=== PATIENT | female | born 1955 | race American Indian/Alaskan Native ===

== ENCOUNTER 2022-03-23 03:02 | Inpatient (IN) | payer MEDICARE ==
[2022-03-23 05:03] LABS: Basophils # (Auto) 0.1 K/mm3 (0.0-0.1); Basophils % (Auto) 0.7 % (0.0-1.8); Eosinophils % (Auto) 0.1 % (0.0-4.3); Hematocrit 39.6 % (30.3-42.9); Hemoglobin 13.3 gm/dl (10.1-14.3); Lymphocytes # (Auto) 1.9 K/mm3 (1.2-5.4); Lymphocytes % (Auto) 18.6 % (13.4-35.0); Mean Corpuscular HGB Conc 34 % (30-34); Mean Corpuscular Volume 89 fl (79-97); Monocytes # (Auto) 0.6 K/mm3 (0.0-0.8); Monocytes % (Auto) 6.3 % (0.0-7.3); Platelet Count 247 K/mm3 (140-440); Red Blood Count 4.48 M/mm3 (3.65-5.03); Red Cell Distribution Width 14.7 % (13.2-15.2)
[2022-03-23 05:14] LABS: Alanine Aminotransferase 27 units/L (7-56); Albumin 3.9 g/dL (3.9-5); Blood Urea Nitrogen 14 mg/dL (7-17); Calcium 9.9 mg/dL (8.4-10.2); Hemolysis Index 16
[2022-03-23 05:15] LABS: BUN/Creatinine Ratio 35
[2022-03-23] MEDS ORDERED: ONDANSETRON 4 MG/2 ML INJ IV ONE (10:26)
[2022-03-23] MEDS ORDERED: SODIUM CHLORIDE 0.9% 500 ML 500 ML IV ONE (10:26)
[2022-03-23] MEDS ORDERED: fentaNYL 100 MCG/2 ML INJ IV ONE (10:26)
[2022-03-23] MEDS ORDERED: dilTIAZem 25 MG/5 ML INJ IV ONE (10:35)
--- NOTE | 2022-03-23 10:35 | Emergency Department Report ---
HPI - General Chief Complaint: Nausea/Vomiting/Diarrhea Time Seen by Provider: 03/23/22 09:53 - HPI HPI: Room 22 The patient is a 66-year-old female present with a chief complaint of back pain nausea vomiting. Patient states her symptoms began yesterday when she awakened. Patient states she felt "sick." Patient states her symptoms include shaking chills and back pain. Patient complains of pain across her lower back. Patient states she developed nausea vomiting and diarrhea. Patient denies history of fever, dysuria or hematuria. Patient does have a history of atrial fibrillation ED Past Medical Hx - Past Medical History Previous Medical History?: Yes Hx Hypertension: Yes Hx Congestive Heart Failure: Yes Additional medical history: Atrial fibrillation - Surgical History Past Surgical History?: No - Family History Family history: no significant - Social History Smoking Status: Never Smoker Substance Use Type: None (Denies illicit drug use), Alcohol (Occasional) ED Review of Systems ROS: Stated complaint: SHAKING/NAUSEA Other details as noted in HPI Constitutional: chills. denies: fever Eyes: denies: eye pain ENT: denies: throat pain Respiratory: no symptoms reported Cardiovascular: denies: chest pain Endocrine: no symptoms reported Gastrointestinal: nausea, vomiting, diarrhea. denies: abdominal pain Genitourinary: denies: dysuria, hematuria Musculoskeletal: back pain Neurological: headache Physical Exam - Physical Exam Vital Signs: Vital Signs 03/23/22 03/23/22 03/23/22 03:03 05:56 09:52 Temperature 99.2 F 98.4 F Pulse Rate 107 H 121 H 98 H Respiratory 20 20 18 Rate Blood Pressure 138/86 137/86 Blood Pressure 164/93 [Left] O2 Sat by Pulse 99 99 99 Oximetry 03/23/22 09:56 Temperature 98.7 F Pulse Rate Respiratory Rate Blood Pressure Blood Pressure [Left] O2 Sat by Pulse Oximetry Physical Exam: GENERAL: The patient is well-developed well-nourished female lying on stretcher not appearing to be in acute distress but generally uncomfortable. [] HEENT: Normocephalic. Atraumatic. Extraocular motions are intact. Patient has moist mucous membranes. NECK: Supple. Trachea midline CHEST/LUNGS: Clear to auscultation. There is no respiratory distress noted. HEART/CARDIOVASCULAR: Regular at times and then irregularly irregular. There is occasional tachycardia. There is no gallop rub or murmur. ABDOMEN: Abdomen is soft, nontender. Patient has normal bowel sounds. There is no abdominal distention. SKIN: There is no rash. There is no edema. There is no diaphoresis. NEURO: The patient is awake, alert, and oriented. The patient is cooperative. The patient has no focal neurologic deficits. The patient has normal speech. GCS 15 MUSCULOSKELETAL: There is pain across the low lower back bilaterally. There is no evidence of acute injury. ED Course Vital Signs 03/23/22 03/23/22 03/23/22 03:03 05:56 09:52 Temperature 99.2 F 98.4 F Pulse Rate 107 H 121 H 98 H Respiratory 20 20 18 Rate Blood Pressure 138/86 137/86 Blood Pressure 164/93 [Left] O2 Sat by Pulse 99 99 99 Oximetry 03/23/22 09:56 Temperature 98.7 F Pulse Rate Respiratory Rate Blood Pressure Blood Pressure [Left] O2 Sat by Pulse Oximetry ED Medical Decision Making - Lab Data Result diagrams: 03/23/22 04:30 03/23/22 04:30 Laboratory Tests 03/23/22 03/23/22 03/23/22 04:30 04:30 04:30 WBC 10.3 RBC 4.48 Hgb 13.3 Hct 39.6 MCV 89 MCH 30 MCHC 34 RDW 14.7 Plt Count 247 Lymph % (Auto) 18.6 [place] % (Auto) 6.3 Eos % (Auto) 0.1 Baso % (Auto) 0.7 Lymph # (Auto) 1.9 [place] # (Auto) 0.6 Eos # (Auto) 0.0 Baso # (Auto) 0.1 Seg Neutrophils % 74.3 H Seg Neutrophils # 7.7 Sodium 139 Potassium 4.2 Chloride 101.3 Carbon Dioxide 23 Anion Gap 19 BUN 14 Creatinine 0.4 L Estimated GFR > 60 BUN/Creatinine Ratio 35 Glucose 102 H Calcium 9.9 Magnesium 1.60 L Total Bilirubin 0.60 AST 37 ALT 27 Alkaline Phosphatase 125 Total Protein 9.9 H Albumin 3.9 Albumin/Globulin Ratio 0.7 Lipase 44 TSH Free T4 Urine Color Urine Turbidity Urine pH Ur Specific [place] Urine Protein Urine Glucose (UA) Urine Ketones Urine Blood Urine Nitrite Urine Bilirubin Urine Urobilinogen Ur Leukocyte Esterase Urine WBC (Auto) Urine RBC (Auto) U Epithel Cells (Auto) Urine Bacteria (Auto) Urine Mucus 03/23/22 03/23/22 04:30 12:59 WBC RBC Hgb Hct MCV MCH MCHC RDW Plt Count Lymph % (Auto) [place] % (Auto) Eos % (Auto) Baso % (Auto) Lymph # (Auto) [place] # (Auto) Eos # (Auto) Baso # (Auto) Seg Neutrophils % Seg Neutrophils # Sodium Potassium Chloride Carbon Dioxide Anion Gap BUN Creatinine Estimated GFR BUN/Creatinine Ratio Glucose Calcium Magnesium Total Bilirubin AST ALT Alkaline Phosphatase Total Protein Albumin Albumin/Globulin Ratio Lipase TSH 3.630 Free T4 0.98 Urine Color Yellow Urine Turbidity Clear Urine pH 6.0 Ur Specific [place] 1.013 Urine Protein <15 mg/dl Urine Glucose (UA) Neg Urine Ketones Tr Urine Blood Sm Urine Nitrite Neg Urine Bilirubin Neg Urine Urobilinogen < 2 Ur Leukocyte Esterase Mod Urine WBC (Auto) 1.0 Urine RBC (Auto) 3.0 U Epithel Cells (Auto) 2.0 Urine Bacteria (Auto) 1+ Urine Mucus Few - EKG Data -: EKG Interpreted by Wi Rate: tachycardia - EKG Data When compared to previous EKG there are: previous EKG unavailable Interpretation: other (EKG appears to go from A. fib RVR to normal sinus back to A. fib with RVR) - Radiology Data Radiology results: report reviewed (CT abdomen pelvis), image reviewed (CT abdomen pelvis) [place] [address] Cat Scan Report Signed Patient: LUPE MIKE MR#: [id number] : 1955 Acct:[id number] Age/Sex: 66 / F ADM Date: 03/23/22 Loc: ED Attending Dr: Ordering Physician: DANA HELMS MD Date of Service: 03/23/22 Procedure(s): CT abdomen pelvis w con Accession Number(s): [id number] cc: DANA HELMS MD CT ABDOMEN AND PELVIS WITH CONTRAST INDICATION / CLINICAL INFORMATION: Low back pain, nausea with vomiting, diarrhea. TECHNIQUE: Axial CT images were obtained through the abdomen and pelvis after IV contrast. All CT scans at this location are performed using CT dose reduction for ALARA by means of automated exposure control. COMPARISON: None available. FINDINGS: LOWER CHEST: No significant abnormality. LIVER: There is mild steatosis without other significant abnormalities. GALLBLADDER: Cholelithiasis is noted without evidence of acute cholecystitis. BILE DUCTS: No significant abnormality. PANCREAS: No significant abnormality. SPLEEN: No significant abnormality. ADRENALS: No significant abnormality. RIGHT KIDNEY/URETER: No significant abnormality. LEFT KIDNEY/URETER: No significant abnormality. STOMACH/SMALL BOWEL: No significant abnormality. COLON: No significant abnormality. APPENDIX: No significant abnormality. PERITONEUM: No free fluid. No free air. No fluid collection. LYMPH NODES: No significant adenopathy. VASCULATURE: There is moderate atherosclerosis without other significant abnormalities. URINARY BLADDER: No significant abnormality. REPRODUCTIVE ORGANS: A calcified uterine fundal fibroid is seen without other significant abnormalities. ADDITIONAL FINDINGS: None. BONES: No acute findings. The bones are demineralized with moderate degenerative changes of the spine and mild degenerative changes of the pelvis. IMPRESSION: 1. No acute findings to explain the patient's complaint. 2. Additional findings as above. Signer Name: Yoel Warren MD Signed: 03/23/2022 2:40 PM Workstation Name: [id number] Transcribed By: TIFFANIE Dictated By: Yoel Warren MD Electronically Authenticated By: Yole Warren MD Signed Date/Time: 03/23/22 1440 DD/ 1436 TD/TT: - Differential Diagnosis Pyelonephritis, A. fib with RVR, hypothyroidism Critical care attestation.: If time is entered above; I have spent that time in minutes in the direct care of this critically ill patient, excluding procedure time. ED Disposition Clinical Impression: Atrial fibrillation with RVR, Nausea vomiting and diarrhea Disposition: ADMITTED INPATIENT Is pt being admited?: Yes Does the pt Need Aspirin: No Condition: Fair Referrals: BASHIR MAN MD [Primary Care Provider] - 3-5 Days Time of Disposition: 14:51 (Care transferred to hospitalist (Dr. Pimentel))
[2022-03-23] MEDS ORDERED: MAGNESIUM SULFATE 2 GM/50 ML BAG IV ONE (11:33)
[2022-03-23 11:42] LABS: Free T4 (Free Thyroxine) 0.98 ng/dL (0.76-1.46)
--- NOTE | 2022-03-23 11:57 | Electrocardiograph Report ---
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
[2022-03-23 13:09] LABS: Bilirubin,Urine NEG (Negative); Blood,Urine SM (Negative); Color,Urine Yellow (Yellow); Protein,Urine <15 mg/dL mg/dL (Negative); Urobilinogen,Urine < 2 mg/dL (<2.0)
[2022-03-23 13:13] LABS: Bacteria,Urine 1+ /HPF (Negative); Mucus,Urine FEW /HPF
--- NOTE | 2022-03-23 14:44 | Cat Scan Report ---
CT ABDOMEN AND PELVIS WITH CONTRAST INDICATION / CLINICAL INFORMATION: Low back pain, nausea with vomiting, diarrhea. TECHNIQUE: Axial CT images were obtained through the abdomen and pelvis after IV contrast. All CT scans at this location are performed using CT dose reduction for ALARA by means of automated exposure control. COMPARISON: None available. FINDINGS: LOWER CHEST: No significant abnormality. LIVER: There is mild steatosis without other significant abnormalities. GALLBLADDER: Cholelithiasis is noted without evidence of acute cholecystitis. BILE DUCTS: No significant abnormality. PANCREAS: No significant abnormality. SPLEEN: No significant abnormality. ADRENALS: No significant abnormality. RIGHT KIDNEY/URETER: No significant abnormality. LEFT KIDNEY/URETER: No significant abnormality. STOMACH/SMALL BOWEL: No significant abnormality. COLON: No significant abnormality. APPENDIX: No significant abnormality. PERITONEUM: No free fluid. No free air. No fluid collection. LYMPH NODES: No significant adenopathy. VASCULATURE: There is moderate atherosclerosis without other significant abnormalities. URINARY BLADDER: No significant abnormality. REPRODUCTIVE ORGANS: A calcified uterine fundal fibroid is seen without other significant abnormaliti es. ADDITIONAL FINDINGS: None. BONES: No acute findings. The bones are demineralized with moderate degenerative changes of the spine and mild degenerative changes of the pelvis. IMPRESSION: 1. No acute findings to explain the patient's complaint. 2. Additional findings as above. Signer Name: Yoel Warren MD Signed: 03/23/2022 2:40 PM Workstation Name: [email or web address]
[2022-03-23] MEDS ORDERED: ONDANSETRON 4 MG/2 ML INJ IV PRN ×2 (14:52→21:35)
[2022-03-23] MEDS ORDERED: MORPHINE 2 MG/1 ML INJ IV PRN (14:52)
[2022-03-23] MEDS ORDERED: ACETAMINOPHEN 325 MG TAB PO PRN ×2 (14:52→21:35)
--- NOTE | 2022-03-23 21:10 | History and Physical Report ---
History of Present Illness Date of examination: 03/23/22 Date of admission: 03/23/22 14:52 Chief complaint: Palpitations off-and-on History of present illness: 66-year-old female comes in for multiple complaints including low back pain and vomiting. Patient also has intermittent palpitations. In the emergency room patient had A. fib with rapid RVR paroxysmally hence patient being admitted. No chest pain. No shortness of breath. No diaphoresis. During examination patient was comfortable. Was in sinus rhythm. EKGs reviewed which showed paroxysmal atrial fibrillation. Patient was started on diltiazem 120 mg every 24 hours. Cardiology consult was requested. Patient has history of hypertension and congestive heart failure. - Past Medical History Previous Medical History?: Yes Hx Hypertension: Yes Hx Congestive Heart Failure: Yes Additional medical history: Atrial fibrillation - Surgical History Past Surgical History?: No - Family History Family history: no significant - Social History Smoking Status: Never Smoker Substance Use Type: None (Denies illicit drug use), Alcohol (Occasional) Review of Systems ROS: Stated complaint: SHAKING/NAUSEA Other details as noted in HPI Constitutional: chills. denies: fever Eyes: denies: eye pain ENT: denies: throat pain Respiratory: no symptoms reported Cardiovascular: denies: chest pain Endocrine: no symptoms reported Gastrointestinal: nausea, vomiting, diarrhea. denies: abdominal pain Genitourinary: denies: dysuria, hematuria Musculoskeletal: back and vomiting. Neurological: headache Medications and Allergies Allergies Allergy/AdvReac Type Severity Reaction Status Date / Time No Known Allergies Allergy Unverified 03/23/22 04:13 Active Meds: Active Medications Acetaminophen (Acetaminophen 325 Mg Tab) 650 mg PO Q4H PRN PRN Reason: Pain MILD(1-3)/Fever >100.5/BARAJAS Morphine Sulfate (Morphine 2 Mg/1 Ml Inj) 2 mg IV Q4H PRN PRN Reason: Pain, Moderate (4-6) Last Admin: 03/23/22 17:22 Dose: 2 mg Ondansetron HCl (Ondansetron 4 Mg/2 Ml Inj) 4 mg IV Q8H PRN PRN Reason: Nausea And Vomiting Last Admin: 03/23/22 18:43 Dose: 4 mg Sodium Chloride (Sodium Chloride 0.9% 10 Ml Flush Syringe) 10 ml IV BID ARELY Sodium Chloride (Sodium Chloride 0.9% 10 Ml Flush Syringe) 10 ml IV PRN PRN PRN Reason: LINE FLUSH Exam - Constitutional Vitals: Temp Pulse Resp BP Pulse Ox 98.7 F 105 H 18 151/105 99 03/23/22 09:56 03/23/22 18:42 03/23/22 18:42 03/23/22 18:42 03/23/22 18:42 General appearance: Present: no acute distress, well-nourished - EENT Eyes: Present: PERRL ENT: hearing intact, clear oral mucosa - Neck Neck: Present: supple, normal ROM - Respiratory Respiratory effort: normal Respiratory: bilateral: CTA - Cardiovascular Heart rate: 78 Rhythm: regular Heart Sounds: Present: S1 & S2. Absent: rub, click - Extremities Extremities: pulses symmetrical, No edema Peripheral Pulses: within normal limits - Abdominal General gastrointestinal: Present: soft, non-tender, non-distended, normal bowel sounds Female genitourinary: Present: normal - Integumentary Integumentary: Present: clear, warm, dry - Musculoskeletal Musculoskeletal: gait normal, strength equal bilaterally - Psychiatric Psychiatric: appropriate mood/affect, intact judgment & insight - Neurologic Neurologic: CNII-XII intact, moves all extremities HEART Score - HEART Score History: Moderately suspicious Age: > 65 Risk factors: 1-2 risk factors Troponin: < normal limit - Critical Actions Critical Actions: 4-6 pts:12-16.6% risk of adverse cardiac event. Should be admitted Results - Labs CBC & Chem 7: 03/24/22 05:43 03/24/22 05:43 Labs: Laboratory Last Values WBC 10.3 K/mm3 (4.5-11.0) 03/23/22 04:30 RBC 4.48 M/mm3 (3.65-5.03) 03/23/22 04:30 Hgb 13.3 gm/dl (10.1-14.3) 03/23/22 04:30 Hct 39.6 % (30.3-42.9) 03/23/22 04:30 MCV 89 fl (79-97) 03/23/22 04:30 MCH 30 pg (28-32) 03/23/22 04:30 MCHC 34 % (30-34) 03/23/22 04:30 RDW 14.7 % (13.2-15.2) 03/23/22 04:30 Plt Count 247 K/mm3 (140-440) 03/23/22 04:30 Lymph % (Auto) 18.6 % (13.4-35.0) 03/23/22 04:30 [place] % (Auto) 6.3 % (0.0-7.3) 03/23/22 04:30 Eos % (Auto) 0.1 % (0.0-4.3) 03/23/22 04:30 Baso % (Auto) 0.7 % (0.0-1.8) 03/23/22 04:30 Lymph # (Auto) 1.9 K/mm3 (1.2-5.4) 03/23/22 04:30 [place] # (Auto) 0.6 K/mm3 (0.0-0.8) 03/23/22 04:30 Eos # (Auto) 0.0 K/mm3 (0.0-0.4) 03/23/22 04:30 Baso # (Auto) 0.1 K/mm3 (0.0-0.1) 03/23/22 04:30 Seg Neutrophils % 74.3 % (40.0-70.0) H 03/23/22 04:30 Seg Neutrophils # 7.7 K/mm3 (1.8-7.7) 03/23/22 04:30 Sodium 139 mmol/L (137-145) 03/23/22 04:30 Potassium 4.2 mmol/L (3.6-5.0) 03/23/22 04:30 Chloride 101.3 mmol/L (98-107) 03/23/22 04:30 Carbon Dioxide 23 mmol/L (22-30) 03/23/22 04:30 Anion Gap 19 mmol/L 03/23/22 04:30 BUN 14 mg/dL (7-17) 03/23/22 04:30 Creatinine 0.4 mg/dL (0.6-1.2) L 03/23/22 04:30 Estimated GFR > 60 ml/min 03/23/22 04:30 BUN/Creatinine Ratio 35 % 03/23/22 04:30 Glucose 102 mg/dL (65-100) H 03/23/22 04:30 Calcium 9.9 mg/dL (8.4-10.2) 03/23/22 04:30 Magnesium 1.60 mg/dL (1.7-2.3) L 03/23/22 04:30 Total Bilirubin 0.60 mg/dL (0.1-1.2) 03/23/22 04:30 AST 37 units/L (5-40) 03/23/22 04:30 ALT 27 units/L (7-56) 03/23/22 04:30 Alkaline Phosphatase 125 units/L (35-129) 03/23/22 04:30 Total Protein 9.9 g/dL (6.3-8.2) H 03/23/22 04:30 Albumin 3.9 g/dL (3.9-5) 03/23/22 04:30 Albumin/Globulin Ratio 0.7 % 03/23/22 04:30 Lipase 44 units/L (13-60) 03/23/22 04:30 TSH 3.630 mlU/mL (0.270-4.200) 03/23/22 04:30 Free T4 0.98 ng/dL (0.76-1.46) 03/23/22 04:30 Urine Color Yellow (Yellow) 03/23/22 12:59 Urine Turbidity Clear (Clear) 03/23/22 12:59 Urine pH 6.0 (5.0-7.0) 03/23/22 12:59 Ur Specific [place] 1.013 (1.003-1.030) 03/23/22 12:59 Urine Protein <15 mg/dl mg/dL (Negative) 03/23/22 12:59 Urine Glucose (UA) Neg mg/dL (Negative) 03/23/22 12:59 Urine Ketones Tr mg/dL (Negative) 03/23/22 12:59 Urine Blood Sm (Negative) 03/23/22 12:59 Urine Nitrite Neg (Negative) 03/23/22 12:59 Urine Bilirubin Neg (Negative) 03/23/22 12:59 Urine Urobilinogen < 2 mg/dL (<2.0) 03/23/22 12:59 Ur Leukocyte Esterase Mod (Negative) 03/23/22 12:59 Urine WBC (Auto) 1.0 /HPF (0.0-6.0) 03/23/22 12:59 Urine RBC (Auto) 3.0 /HPF (0.0-6.0) 03/23/22 12:59 U Epithel Cells (Auto) 2.0 /HPF (0-13.0) 03/23/22 12:59 Urine Bacteria (Auto) 1+ /HPF (Negative) 03/23/22 12:59 Urine Mucus Few /HPF 03/23/22 12:59 - Imaging and Cardiology EKG: report reviewed (Paroxysmal atrial fibrillation. Heart rate of 100-1 20) Assessment and Plan Advance Directives: Yes (full code) Plan of care discussed with patient/family: Yes - Patient Problems (1) Atrial fibrillation with RVR Current Visit: Yes Status: Acute Plan to address problem: Paroxysmal. Cardiology consult requested. Patient initiated on diltiazem 120 mg every 24 hours. Will defer to cardiology regarding continuation of diltiazem. Will also defer to cardiology for starting Eliquis. (2) Acute gastritis Current Visit: Yes Status: Acute Qualifiers: Gastritis type: unspecified gastritis Plan to address problem: On PPIs. (3) Hypertension Current Visit: Yes Status: Chronic Qualifiers: Hypertension type: primary hypertension Qualified Code(s): I10 - Essential (primary) hypertension Plan to address problem: Continue antihypertensives and adjust medications (4) DVT prophylaxis Current Visit: Yes Status: Acute Plan to address problem: On anticoagulation GI prophylaxis. (5) Advance care planning Current Visit: Yes Status: Acute Plan to address problem: Disease education conducted. Care plan discussed. Diagnosis and prognosis discussed.
[2022-03-23] MEDS ORDERED: METOCLOPRAMIDE 10 MG/2 ML INJ IV PRN (21:35)
[2022-03-24] MEDS: SODIUM CHLORIDE 0.9% 1000 ML 1,000 ML IV SCH ×2 (02:24→17:54)
[2022-03-24] MEDS ORDERED: diphenhydrAMINE 25 MG CAP PO ONE (05:33)
[2022-03-24 06:23] LABS: Basophils # (Auto) 0.1 K/mm3 (0.0-0.1); Basophils % (Auto) 0.9 % (0.0-1.8); Eosinophils % (Auto) 0.3 % (0.0-4.3); Hemoglobin 12.1 gm/dl (10.1-14.3); Lymphocytes # (Auto) 2.9 K/mm3 (1.2-5.4); Lymphocytes % (Auto) 31.6 % (13.4-35.0); Mean Corpuscular HGB Conc 34 % (30-34); Mean Corpuscular Volume 89 fl (79-97); Monocytes # (Auto) 0.9 K/mm3 (0.0-0.8); Monocytes % (Auto) 10.1 % (0.0-7.3); Platelet Count 217 K/mm3 (140-440); Red Blood Count 4.05 M/mm3 (3.65-5.03); Red Cell Distribution Width 14.4 % (13.2-15.2)
[2022-03-24 06:46] LABS: Alanine Aminotransferase 20 units/L (7-56); Albumin 3.3 g/dL (3.9-5); Blood Urea Nitrogen 8 mg/dL (7-17); Calcium 9.2 mg/dL (8.4-10.2); Hemolysis Index 6
[2022-03-24 06:47] LABS: BUN/Creatinine Ratio 13
[2022-03-24] MEDS: dilTIAZem CD 120 MG CAP PO SCH ×2 (09:41→09:42)
--- NOTE | 2022-03-24 10:53 | Electrocardiograph Report ---
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
--- NOTE | 2022-03-24 12:18 | Progress Note ---
Assessment and Plan Assessment and plan: (1) Atrial fibrillation with RVR Current Visit: Yes Status: Acute Plan to address problem: Paroxysmal. Cardiology consult requested. Patient initiated on diltiazem 120 mg every 24 hours. Will defer to cardiology regarding continuation of diltiazem. Will also defer to cardiology for starting Eliquis. (2) Acute gastritis Current Visit: Yes Status: Acute Qualifiers: Gastritis type: unspecified gastritis Plan to address problem: On PPIs. (3) Hypertension Current Visit: Yes Status: Chronic Qualifiers: Hypertension type: primary hypertension Qualified Code(s): I10 - Essential (primary) hypertension Plan to address problem: Continue antihypertensives and adjust medications (4) DVT prophylaxis Current Visit: Yes Status: Acute Plan to address problem: On anticoagulation GI prophylaxis. (5) Advance care planning Current Visit: Yes Status: Acute Plan to address problem: Disease education conducted. Care plan discussed. Diagnosis and prognosis di scussed. History Interval history: I have seen and examined the patient at the bedside Patient's chart and medications reviewed No new overnight events reported by the nursing staff Patient feels better Hospitalist Physical - Constitutional Vitals: Temp Pulse Resp BP Pulse Ox 98.4 F 121 H 18 149/73 100 03/24/22 07:48 03/24/22 04:20 03/24/22 07:48 03/24/22 09:42 03/24/22 07:48 General appearance: Present: no acute distress, well-nourished - EENT Eyes: Present: PERRL, EOM intact - Neck Neck: Present: supple, normal ROM - Respiratory Respiratory effort: normal Respiratory: bilateral: diminished, negative: rales, rhonchi, wheezing - Cardiovascular Rhythm: regular Heart Sounds: Present: S1 & S2 - Extremities Extremities: no ischemia, No edema - Abdominal General gastrointestinal: soft, non-tender, non-distended - Integumentary Integumentary: Present: clear, warm - Psychiatric Psychiatric: appropriate mood/affect, cooperative - Neurologic Neurologic: moves all extremities HEART Score - HEART Score Age: > 65 Risk factors: 1-2 risk factors Troponin: < normal limit - Critical Actions Critical Actions: 4-6 pts:12-16.6% risk of adverse cardiac event. Should be admitted Results - Labs CBC & Chem 7: 03/24/22 05:43 03/24/22 05:43 Labs: Laboratory Last Values WBC 9.1 K/mm3 (4.5-11.0) 03/24/22 05:43 RBC 4.05 M/mm3 (3.65-5.03) 03/24/22 05:43 Hgb 12.1 gm/dl (10.1-14.3) 03/24/22 05:43 Hct 36.0 % (30.3-42.9) 03/24/22 05:43 MCV 89 fl (79-97) 03/24/22 05:43 MCH 30 pg (28-32) 03/24/22 05:43 MCHC 34 % (30-34) 03/24/22 05:43 RDW 14.4 % (13.2-15.2) 03/24/22 05:43 Plt Count 217 K/mm3 (140-440) 03/24/22 05:43 Lymph % (Auto) 31.6 % (13.4-35.0) 03/24/22 05:43 [place] % (Auto) 10.1 % (0.0-7.3) H 03/24/22 05:43 Eos % (Auto) 0.3 % (0.0-4.3) 03/24/22 05:43 Baso % (Auto) 0.9 % (0.0-1.8) 03/24/22 05:43 Lymph # (Auto) 2.9 K/mm3 (1.2-5.4) 03/24/22 05:43 [place] # (Auto) 0.9 K/mm3 (0.0-0.8) H 03/24/22 05:43 Eos # (Auto) 0.0 K/mm3 (0.0-0.4) 03/24/22 05:43 Baso # (Auto) 0.1 K/mm3 (0.0-0.1) 03/24/22 05:43 Seg Neutrophils % 57.1 % (40.0-70.0) 03/24/22 05:43 Seg Neutrophils # 5.2 K/mm3 (1.8-7.7) 03/24/22 05:43 Sodium 135 mmol/L (137-145) L 03/24/22 05:43 Potassium 3.6 mmol/L (3.6-5.0) 03/24/22 05:43 Chloride 99.5 mmol/L (98-107) 03/24/22 05:43 Carbon Dioxide 25 mmol/L (22-30) 03/24/22 05:43 Anion Gap 14 mmol/L 03/24/22 05:43 BUN 8 mg/dL (7-17) 03/24/22 05:43 Creatinine 0.6 mg/dL (0.6-1.2) 03/24/22 05:43 Estimated GFR > 60 ml/min 03/24/22 05:43 BUN/Creatinine Ratio 13 % 03/24/22 05:43 Glucose 92 mg/dL (65-100) 03/24/22 05:43 Calcium 9.2 mg/dL (8.4-10.2) 03/24/22 05:43 Magnesium 1.60 mg/dL (1.7-2.3) L 03/23/22 04:30 Total Bilirubin 1.20 mg/dL (0.1-1.2) 03/24/22 05:43 AST 27 units/L (5-40) 03/24/22 05:43 ALT 20 units/L (7-56) 03/24/22 05:43 Alkaline Phosphatase 102 units/L (35-129) 03/24/22 05:43 Total Protein 8.3 g/dL (6.3-8.2) H 03/24/22 05:43 Albumin 3.3 g/dL (3.9-5) L 03/24/22 05:43 Albumin/Globulin Ratio 0.7 % 03/24/22 05:43 Lipase 44 units/L (13-60) 03/23/22 04:30 TSH 3.630 mlU/mL (0.270-4.200) 03/23/22 04:30 Free T4 0.98 ng/dL (0.76-1.46) 03/23/22 04:30 Urine Color Yellow (Yellow) 03/23/22 12:59 Urine Turbidity Clear (Clear) 03/23/22 12:59 Urine pH 6.0 (5.0-7.0) 03/23/22 12:59 Ur Specific [place] 1.013 (1.003-1.030) 03/23/22 12:59 Urine Protein <15 mg/dl mg/dL (Negative) 03/23/22 12:59 Urine Glucose (UA) Neg mg/dL (Negative) 03/23/22 12:59 Urine Ketones Tr mg/dL (Negative) 03/23/22 12:59 Urine Blood Sm (Negative) 03/23/22 12:59 Urine Nitrite Neg (Negative) 03/23/22 12:59 Urine Bilirubin Neg (Negative) 03/23/22 12:59 Urine Urobilinogen < 2 mg/dL (<2.0) 03/23/22 12:59 Ur Leukocyte Esterase Mod (Negative) 03/23/22 12:59 Urine WBC (Auto) 1.0 /HPF (0.0-6.0) 03/23/22 12:59 Urine RBC (Auto) 3.0 /HPF (0.0-6.0) 03/23/22 12:59 U Epithel Cells (Auto) 2.0 /HPF (0-13.0) 03/23/22 12:59 Urine Bacteria (Auto) 1+ /HPF (Negative) 03/23/22 12:59 Urine Mucus Few /HPF 03/23/22 12:59 Morse/IV: Voiding Method External Female Catheter Active Medications - Current Medications Current Medications: Generic Name Dose Route Start Last Admin Trade Name Freq PRN Reason Stop Dose Admin Acetaminophen 650 mg 03/23/22 21:35 Acetaminophen 325 Mg Tab PO Q4H PRN Pain MILD(1-3)/Fever >100.5/BARAJAS Diltiazem HCl 120 mg 03/23/22 22:00 03/24/22 09:42 Diltiazem Cd 120 Mg Cap PO 120 mg QDAY ARELY Administration Sodium Chloride 1,000 mls @ 75 mls/hr 03/23/22 21:45 03/24/22 02:24 Nacl 0.9% 1000 Ml IV 75 mls/hr DIRECT ARELY Administration Metoclopramide HCl 10 mg 03/23/22 21:35 Metoclopramide 10 Mg/2 Ml Inj IV Q6H PRN Nausea And Vomiting Morphine Sulfate 2 mg 03/23/22 14:52 03/23/22 17:22 Morphine 2 Mg/1 Ml Inj IV 2 mg Q4H PRN Administration Pain, Moderate (4-6) Ondansetron HCl 4 mg 03/23/22 21:35 Ondansetron 4 Mg/2 Ml Inj IV Q8H PRN Nausea And Vomiting Oxycodone/Acetaminophen 1 tab 03/23/22 21:35 Oxycodone /Acetaminophen 5-325mg Tab PO Q6H PRN Pain, Moderate (4-6) Sodium Chloride 10 ml 03/23/22 22:00 03/24/22 09:42 Sodium Chloride 0.9% 10 Ml Flush Syringe IV 10 ml BID ARELY Administration Sodium Chloride 10 ml 03/23/22 21:35 Sodium Chloride 0.9% 10 Ml Flush Syringe IV PRN PRN LINE FLUSH
--- NOTE | 2022-03-24 18:11 | Consultation ---
History of Present Illness Consult date: 03/24/22 Consult reason: atrial fibrillation History of present illness: The patient is a 66-year-old woman with a history of paroxysmal atrial fibrillation, who receives her usual care at [facility]. She states that her primary occupational health and safety manager at [place] is Dr. Baires, who treats her with metoprolol and Xarelto. She denies history of coronary artery disease, but unable to articulate any previous assessments of left ventricular function. Over the past 2 days, the patient developed a persistent diarrhea, nausea and vomiting. Yesterday, due to persistent symptoms and inability to keep food intake, she reported to [place] emergency room. She states that she was informed of an extensive wait time to see a doctor, which prompted her to turn around and report to [facility]. On arrival to the emergency room here, she was noted on the playground monitor with intermittent short bursts of rapid atrial fibrillation, which prompted a cardiac consultation. The patient has no chest pain, no shortness of breath, no lower extremity edema, but does report intermittent palpitations. Initial twelve-lead ECG showed short bursts of rapid atrial fibrillation, interspersed with sinus rhythm. Today, the patient is in a stable sinus rhythm at 97, on oral diltiazem. Her initial presenting nausea and vomiting and diar taylor have abated somewhat. Laboratory exam shows a normal potassium of 4.2, but low magnesium of 1.6. The TSH level was normal at 3.6. Past History Past Medical History: atrial fib Medications and Allergies Allergies Allergy/AdvReac Type Severity Reaction Status Date / Time No Known Allergies Allergy Unverified 03/23/22 04:13 Active Meds: Active Medications Acetaminophen (Acetaminophen 325 Mg Tab) 650 mg PO Q4H PRN PRN Reason: Pain MILD(1-3)/Fever >100.5/BARAAJS Diltiazem HCl (Diltiazem Cd 120 Mg Cap) 120 mg PO QDAY ARELY Last Admin: 03/24/22 09:42 Dose: 120 mg Sodium Chloride (Nacl 0.9% 1000 Ml) 1,000 mls @ 75 mls/hr IV DIRECT ARELY Last Admin: 03/24/22 17:54 Dose: 75 mls/hr Metoclopramide HCl (Metoclopramide 10 Mg/2 Ml Inj) 10 mg IV Q6H PRN PRN Reason: Nausea And Vomiting Morphine Sulfate (Morphine 2 Mg/1 Ml Inj) 2 mg IV Q4H PRN PRN Reason: Pain, Moderate (4-6) Last Admin: 03/23/22 17:22 Dose: 2 mg Ondansetron HCl (Ondansetron 4 Mg/2 Ml Inj) 4 mg IV Q8H PRN PRN Reason: Nausea And Vomiting Oxycodone/Acetaminophen (Oxycodone /Acetaminophen 5-325mg Tab) 1 tab PO Q6H PRN PRN Reason: Pain, Moderate (4-6) Sodium Chloride (Sodium Chloride 0.9% 10 Ml Flush Syringe) 10 ml IV BID ARELY Last Admin: 03/24/22 09:42 Dose: 10 ml Sodium Chloride (Sodium Chloride 0.9% 10 Ml Flush Syringe) 10 ml IV PRN PRN PRN Reason: LINE FLUSH Review of Systems Cardiovascular: palpitations, rapid/irregular heart beat, no chest pain, no orthopnea, no edema, no syncope, no lightheadedness, no shortness of breath Physical Examination Vital Signs Temp Pulse Resp BP Pulse Ox 99.2 F 107 H 20 138/86 99 03/23/22 03:03 03/23/22 03:03 03/23/22 03:03 03/23/22 03:03 03/23/22 03:03 General appearance: no acute distress HEENT: Positive: PERRL Neck: Positive: neck supple Cardiac: Positive: Reg Rate and Rhythm Lungs: Positive: clear to auscultation Neuro: Positive: Grossly Intact Abdomen: Positive: Soft Female genitourinary: deferred Skin: Positive: Clear Extremities: Absent: edema Results 03/24/22 05:43 03/24/22 05:43 Cardiac Enzymes 03/24/22 Range/Units 05:43 AST 27 (5-40) units/L CBC 03/24/22 Range/Units 05:43 WBC 9.1 (4.5-11.0) K/mm3 RBC 4.05 (3.65-5.03) M/mm3 Hgb 12.1 (10.1-14.3) gm/dl Hct 36.0 (30.3-42.9) % Plt Count 217 (140-440) K/mm3 Lymph # (Auto) 2.9 (1.2-5.4) K/mm3 [place] # (Auto) 0.9 H (0.0-0.8) K/mm3 Eos # (Auto) 0.0 (0.0-0.4) K/mm3 Baso # (Auto) 0.1 (0.0-0.1) K/mm3 Comprehensive Metabolic Panel 03/24/22 Range/Units 05:43 Sodium 135 L (137-145) mmol/L Potassium 3.6 (3.6-5.0) mmol/L Chloride 99.5 (98-107) mmol/L Carbon Dioxide 25 (22-30) mmol/L BUN 8 (7-17) mg/dL Creatinine 0.6 (0.6-1.2) mg/dL Glucose 92 (65-100) mg/dL Calcium 9.2 (8.4-10.2) mg/dL AST 27 (5-40) units/L ALT 20 (7-56) units/L Alkaline Phosphatase 102 (35-129) units/L Total Protein 8.3 H (6.3-8.2) g/dL Albumin 3.3 L (3.9-5) g/dL EKG interpretations - Telemetry EKG Rhythm: Atrial Fibrillation (Short bursts of rapid atrial fibrillation, interspersed with sinus rhythm) Assessment and Plan - Patient Problems (1) Atrial fibrillation with RVR Current Visit: Yes Status: Acute Plan to address problem: 66-year-old woman with history of paroxysmal atrial fibrillation, maintained on metoprolol and Xarelto, presents with nausea vomiting and diarrhea over several days, associated with a transient recurrence of rapid atrial fibrillation. We will resume patient's metoprolol, otherwise conservative cardiac management. Replete magnesium levels. With regards to oral anticoagulation, Xarelto can be resumed on discharge to avoid any delays associated with any planned hospital procedures. SQ Heparin until discharge. Defer to internal medicine and gastroenterology for evaluation and management of the patient's primary presenting complaints of nausea vomiting and diarrhea.
[2022-03-24] MEDS: METOPROLOL TARTRATE 50 MG TAB PO SCH (19:27)
[2022-03-24] MEDS: HEPARIN 5,000 UNIT/1 ML VIAL SUB-Q SCH (22:03)
[2022-03-24] MEDS ORDERED: diphenhydrAMINE 25 MG/10 ML ORAL LIQUID PO ONE (22:40)
[2022-03-25] MEDS: METOPROLOL TARTRATE 50 MG TAB PO SCH ×3 (03:08→19:05)
[2022-03-25] MEDS: HEPARIN 5,000 UNIT/1 ML VIAL SUB-Q SCH ×2 (10:22→22:45)
--- NOTE | 2022-03-25 11:11 | Progress Note ---
Assessment and Plan - Patient Problems (1) Atrial fibrillation with RVR Current Visit: Yes Status: Acute Plan to address problem: 66-year-old woman with history of paroxysmal atrial fibrillation, maintained on metoprolol and Xarelto, presents with nausea vomiting and diarrhea over several days, associated with a transient recurrence of rapid atrial fibrillation. We will resume patient's metoprolol, otherwise conservative cardiac management. Replete magnesium levels. With regards to oral anticoagulation, Xarelto can be resumed on discharge to avoid any delays associated with any planned hospital procedures. SQ Heparin until discharge. Defer to internal medicine and gastroenterology for evaluation and management of the patient's primary presenting complaints of nausea vomiting and diarrhea. Subjective Date of service: 03/25/22 Principal diagnosis: Nausea, vomiting, diarrhea. Paroxysmal atrial fibrillation Interval history: Patient is comfortable in no acute distress, no cardiac complaints, no palpitations. On panel monitor she remains in stable sinus rhythm at 76. Objective Vital Signs Temp Pulse Resp BP Pulse Ox 03/25/22 10:00 80 03/25/22 09:00 98.2 F 81 18 142/83 99 03/25/22 04:24 98.2 F 73 20 115/60 100 03/25/22 03:08 74 154/89 03/25/22 02:00 79 18 97 03/24/22 23:54 97.6 F 74 20 154/89 100 03/24/22 19:41 98.5 F 80 20 144/76 100 03/24/22 18:00 78 03/24/22 15:06 98.3 F 87 18 138/85 99 03/24/22 14:12 18 97 - Physical Examination General: No Apparent Distress HEENT: Positive: PERRL Neck: Positive: neck supple Cardiac: Positive: Reg Rate and Rhythm Lungs: Positive: Decreased Breath Sounds Neuro: Positive: Grossly Intact Abdomen: Positive: Soft Skin: Positive: Clear Extremities: Absent: edema - Imaging and Cardiology EKG: report reviewed (Paroxysmal atrial fibrillation. Heart rate of 100-1 20)
[2022-03-25] MEDS: SODIUM CHLORIDE 0.9% 1000 ML 1,000 ML IV SCH (13:30)
--- NOTE | 2022-03-25 16:10 | Progress Note ---
Assessment and Plan Assessment and plan: --Atrial fibrillation with RVR Paroxysmal. Atrial fibrillation heart rate controlled Cardiology evaluation recommendation noted and appreciated Patient initiated on diltiazem 120 mg every 24 hours. Cardiology recommended Loy at the time of discharge Currently on heparin Closely monitor --Acute gastritis On PPIs., Plenty of oral fluids and supportive care --Hypertension/moderate control Continue antihypertensives and As needed medications --DVT prophylaxis Continue heparin/SCDs --Advance care planning 30 minutes Disease education conducted. Care plan discussed. Diagnosis and prognosis discussed. Patient reports explained to the patient Consultants recommendations discussed We will closely monitor the patient and adjust management as needed Plan of care reviewed with the patient and her nurse [employer]er recommendations noted and appreciated Disposition; discharge when medically stable History Interval history: I have seen and examined the patient at the bedside Patient's chart and medications reviewed Patient with [facility] with rapid ventricular rate now rate controlled Admitted with nausea vomiting resolved Feels better, no new complaints today Vital signs reviewed Hospitalist Physical - Constitutional Vitals: Temp Pulse Resp BP Pulse Ox 98.4 F 74 18 160/90 99 03/25/22 14:45 03/25/22 14:45 03/25/22 14:45 03/25/22 14:45 03/25/22 14:45 General appearance: Present: no acute distress, well-nourished - EENT Eyes: Present: PERRL, EOM intact ENT: hearing intact, clear oral mucosa - Neck Neck: Present: supple, normal ROM - Respiratory Respiratory effort: normal Respiratory: bilateral: diminished, negative: rales, rhonchi, wheezing - Cardiovascular Rhythm: regular Heart Sounds: Present: S1 & S2 - Extremities Extremities: no ischemia, No edema - Abdominal General gastrointestinal: soft, non-tender, non-distended, normal bowel sounds - Integumentary Integumentary: Present: clear, warm - Psychiatric Psychiatric: appropriate mood/affect, cooperative - Neurologic Neurologic: moves all extremities HEART Score - HEART Score Age: > 65 Risk factors: 1-2 risk factors Troponin: < normal limit - Critical Actions Critical Actions: 4-6 pts:12-16.6% risk of adverse cardiac event. Should be admitted Results - Labs CBC & Chem 7: 03/24/22 05:43 03/24/22 05:43 Labs: Laboratory Last Values WBC 9.1 K/mm3 (4.5-11.0) 03/24/22 05:43 RBC 4.05 M/mm3 (3.65-5.03) 03/24/22 05:43 Hgb 12.1 gm/dl (10.1-14.3) 03/24/22 05:43 Hct 36.0 % (30.3-42.9) 03/24/22 05:43 MCV 89 fl (79-97) 03/24/22 05:43 MCH 30 pg (28-32) 03/24/22 05:43 MCHC 34 % (30-34) 03/24/22 05:43 RDW 14.4 % (13.2-15.2) 03/24/22 05:43 Plt Count 217 K/mm3 (140-440) 03/24/22 05:43 Lymph % (Auto) 31.6 % (13.4-35.0) 03/24/22 05:43 [place] % (Auto) 10.1 % (0.0-7.3) H 03/24/22 05:43 Eos % (Auto) 0.3 % (0.0-4.3) 03/24/22 05:43 Baso % (Auto) 0.9 % (0.0-1.8) 03/24/22 05:43 Lymph # (Auto) 2.9 K/mm3 (1.2-5.4) 03/24/22 05:43 [place] # (Auto) 0.9 K/mm3 (0.0-0.8) H 03/24/22 05:43 Eos # (Auto) 0.0 K/mm3 (0.0-0.4) 03/24/22 05:43 Baso # (Auto) 0.1 K/mm3 (0.0-0.1) 03/24/22 05:43 Seg Neutrophils % 57.1 % (40.0-70.0) 03/24/22 05:43 Seg Neutrophils # 5.2 K/mm3 (1.8-7.7) 03/24/22 05:43 Sodium 135 mmol/L (137-145) L 03/24/22 05:43 Potassium 3.6 mmol/L (3.6-5.0) 03/24/22 05:43 Chloride 99.5 mmol/L (98-107) 03/24/22 05:43 Carbon Dioxide 25 mmol/L (22-30) 03/24/22 05:43 Anion Gap 14 mmol/L 03/24/22 05:43 BUN 8 mg/dL (7-17) 03/24/22 05:43 Creatinine 0.6 mg/dL (0.6-1.2) 03/24/22 05:43 Estimated GFR > 60 ml/min 03/24/22 05:43 BUN/Creatinine Ratio 13 % 03/24/22 05:43 Glucose 92 mg/dL (65-100) 03/24/22 05:43 Calcium 9.2 mg/dL (8.4-10.2) 03/24/22 05:43 Magnesium 1.60 mg/dL (1.7-2.3) L 03/23/22 04:30 Total Bilirubin 1.20 mg/dL (0.1-1.2) 03/24/22 05:43 AST 27 units/L (5-40) 03/24/22 05:43 ALT 20 units/L (7-56) 03/24/22 05:43 Alkaline Phosphatase 102 units/L (35-129) 03/24/22 05:43 Total Protein 8.3 g/dL (6.3-8.2) H 03/24/22 05:43 Albumin 3.3 g/dL (3.9-5) L 03/24/22 05:43 Albumin/Globulin Ratio 0.7 % 03/24/22 05:43 Lipase 44 units/L (13-60) 03/23/22 04:30 TSH 3.630 mlU/mL (0.270-4.200) 03/23/22 04:30 Free T4 0.98 ng/dL (0.76-1.46) 03/23/22 04:30 Urine Color Yellow (Yellow) 03/23/22 12:59 Urine Turbidity Clear (Clear) 03/23/22 12:59 Urine pH 6.0 (5.0-7.0) 03/23/22 12:59 Ur Specific [place] 1.013 (1.003-1.030) 03/23/22 12:59 Urine Protein <15 mg/dl mg/dL (Negative) 03/23/22 12:59 Urine Glucose (UA) Neg mg/dL (Negative) 03/23/22 12:59 Urine Ketones Tr mg/dL (Negative) 03/23/22 12:59 Urine Blood Sm (Negative) 03/23/22 12:59 Urine Nitrite Neg (Negative) 03/23/22 12:59 Urine Bilirubin Neg (Negative) 03/23/22 12:59 Urine Urobilinogen < 2 mg/dL (<2.0) 03/23/22 12:59 Ur Leukocyte Esterase Mod (Negative) 03/23/22 12:59 Urine WBC (Auto) 1.0 /HPF (0.0-6.0) 03/23/22 12:59 Urine RBC (Auto) 3.0 /HPF (0.0-6.0) 03/23/22 12:59 U Epithel Cells (Auto) 2.0 /HPF (0-13.0) 03/23/22 12:59 Urine Bacteria (Auto) 1+ /HPF (Negative) 03/23/22 12:59 Urine Mucus Few /HPF 03/23/22 12:59 Morse/IV: Voiding Method External Female Catheter Active Medications - Current Medications Current Medications: Generic Name Dose Route Start Last Admin Trade Name Freq PRN Reason Stop Dose Admin Acetaminophen 650 mg 03/23/22 21:35 Acetaminophen 325 Mg Tab PO Q4H PRN Pain MILD(1-3)/Fever >100.5/BARAJAS Heparin Sodium (Porcine) 5,000 unit 03/24/22 22:00 03/25/22 10:22 Heparin 5,000 Unit/1 Ml Vial SUB-Q 5,000 unit Q12HR ARELY Administration Sodium Chloride 1,000 mls @ 75 mls/hr 03/23/22 21:45 03/25/22 13:30 Nacl 0.9% 1000 Ml IV 75 mls/hr DIRECT ARELY Administration Melatonin 5 mg 03/25/22 16:07 Melatonin 5 Mg Tab PO QHS PRN Sleep Metoclopramide HCl 10 mg 03/23/22 21:35 Metoclopramide 10 Mg/2 Ml Inj IV Q6H PRN Nausea And Vomiting Metoprolol Tartrate 50 mg 03/24/22 19:00 03/25/22 10:22 Metoprolol Tartrate 50 Mg Tab PO 50 mg Q8H ARELY Administration Morphine Sulfate 2 mg 03/23/22 14:52 03/23/22 17:22 Morphine 2 Mg/1 Ml Inj IV 2 mg Q4H PRN Administration Pain, Moderate (4-6) Ondansetron HCl 4 mg 03/23/22 21:35 Ondansetron 4 Mg/2 Ml Inj IV Q8H PRN Nausea And Vomiting Oxycodone/Acetaminophen 1 tab 03/23/22 21:35 Oxycodone /Acetaminophen 5-325mg Tab PO Q6H PRN Pain, Moderate (4-6) Sodium Chloride 10 ml 03/23/22 22:00 03/25/22 10:23 Sodium Chloride 0.9% 10 Ml Flush Syringe IV 10 ml BID ARELY Administration Sodium Chloride 10 ml 03/23/22 21:35 Sodium Chloride 0.9% 10 Ml Flush Syringe IV PRN PRN LINE FLUSH
[2022-03-25] MEDS: oxyCODONE /ACETAMINOPHEN 5-325MG TAB PO PRN (22:45)
[2022-03-25] MEDS: MELATONIN 5 MG TAB PO PRN (22:45)
[2022-03-25] MEDS ORDERED: diphenhydrAMINE 50 MG/ML VIAL IV ONE (23:48)
[2022-03-26] MEDS: METOPROLOL TARTRATE 50 MG TAB PO SCH ×3 (03:34→19:35)
[2022-03-26] MEDS: SODIUM CHLORIDE 0.9% 1000 ML 1,000 ML IV SCH ×2 (06:33→17:41)
[2022-03-26] MEDS ORDERED: TORSEMIDE 20 MG PO SCH (10:00)
[2022-03-26] MEDS ORDERED: NON-FORMULARY EACH (Dapagliflozin Propanediol [Farxiga] 10 MG Tablet) PO SCH (10:00)
[2022-03-26] MEDS: allopurinoL 300 MG TAB PO SCH (11:21)
[2022-03-26] MEDS: TORSEMIDE 10 MG TAB PO SCH (11:21)
[2022-03-26] MEDS: MAGNESIUM OXIDE 400 MG TAB PO SCH (11:21)
[2022-03-26] MEDS: HEPARIN 5,000 UNIT/1 ML VIAL SUB-Q SCH ×2 (11:22→22:25)
[2022-03-26] MEDS: LOSARTAN 25 MG TAB PO SCH (11:22)
[2022-03-26] MEDS: FERROUS SULFATE 325 MG TAB PO SCH (11:22)
[2022-03-26] MEDS: FOLIC ACID 1 MG TAB PO SCH (11:22)
--- NOTE | 2022-03-26 12:01 | Progress Note ---
Assessment and Plan Assessment and plan: --Atrial fibrillation with RVR Paroxysmal. Atrial fibrillation heart rate controlled Cardiology evaluation recommendation noted and appreciated Patient initiated on diltiazem 120 mg every 24 hours. Cardiology recommended Cristinaquis at the time of discharge Currently on heparin Closely monitor --Acute gastritis On PPIs., Plenty of oral fluids and supportive care --Hypertension/moderate control Continue antihypertensives and As needed medications --DVT prophylaxis Continue heparin/SCDs --Advance care planning 30 minutes Disease education conducted. Care plan discussed. Diagnosis and prognosis discussed. Patient reports explained to the patient Consultants recommendations discussed We will closely monitor the patient and adjust management as needed Plan of care reviewed with the patient and her nurse Assembler [employer] recommendations noted and appreciated Disposition; discharge when medically stable History Interval history: No new issues overnight Hospitalist Physical - Constitutional Vitals: Temp Pulse Resp BP Pulse Ox 98.8 F 75 18 151/80 100 03/26/22 09:01 03/26/22 11:22 03/26/22 09:01 03/26/22 11:22 03/26/22 09:01 General appearance: Present: no acute distress, well-nourished - EENT Eyes: Present: PERRL, EOM intact ENT: hearing intact, clear oral mucosa, dentition normal - Neck Neck: Present: supple, normal ROM - Respiratory Respiratory effort: normal Respiratory: bilateral: CTA - Cardiovascular Rhythm: regular Heart Sounds: Present: S1 & S2. Absent: gallop, rub - Extremities Extremities: no ischemia, No edema, Full ROM - Abdominal General gastrointestinal: soft, non-tender, non-distended, normal bowel sounds - Integumentary Integumentary: Present: clear, warm, dry - Neurologic Neurologic: CNII-XII intact, moves all extremities HEART Score - HEART Score Age: > 65 Risk factors: 1-2 risk factors Troponin: < normal limit - Critical Actions Critical Actions: 4-6 pts:12-16.6% risk of adverse cardiac event. Should be admitted Results - Labs CBC & Chem 7: 03/24/22 05:43 03/24/22 05:43 Labs: Laboratory Last Values WBC 9.1 K/mm3 (4.5-11.0) 03/24/22 05:43 RBC 4.05 M/mm3 (3.65-5.03) 03/24/22 05:43 Hgb 12.1 gm/dl (10.1-14.3) 03/24/22 05:43 Hct 36.0 % (30.3-42.9) 03/24/22 05:43 MCV 89 fl (79-97) 03/24/22 05:43 MCH 30 pg (28-32) 03/24/22 05:43 MCHC 34 % (30-34) 03/24/22 05:43 RDW 14.4 % (13.2-15.2) 03/24/22 05:43 Plt Count 217 K/mm3 (140-440) 03/24/22 05:43 Lymph % (Auto) 31.6 % (13.4-35.0) 03/24/22 05:43 [place] % (Auto) 10.1 % (0.0-7.3) H 03/24/22 05:43 Eos % (Auto) 0.3 % (0.0-4.3) 03/24/22 05:43 Baso % (Auto) 0.9 % (0.0-1.8) 03/24/22 05:43 Lymph # (Auto) 2.9 K/mm3 (1.2-5.4) 03/24/22 05:43 [place] # (Auto) 0.9 K/mm3 (0.0-0.8) H 03/24/22 05:43 Eos # (Auto) 0.0 K/mm3 (0.0-0.4) 03/24/22 05:43 Baso # (Auto) 0.1 K/mm3 (0.0-0.1) 03/24/22 05:43 Seg Neutrophils % 57.1 % (40.0-70.0) 03/24/22 05:43 Seg Neutrophils # 5.2 K/mm3 (1.8-7.7) 03/24/22 05:43 Sodium 135 mmol/L (137-145) L 03/24/22 05:43 Potassium 3.6 mmol/L (3.6-5.0) 03/24/22 05:43 Chloride 99.5 mmol/L (98-107) 03/24/22 05:43 Carbon Dioxide 25 mmol/L (22-30) 03/24/22 05:43 Anion Gap 14 mmol/L 03/24/22 05:43 BUN 8 mg/dL (7-17) 03/24/22 05:43 Creatinine 0.6 mg/dL (0.6-1.2) 03/24/22 05:43 Estimated GFR > 60 ml/min 03/24/22 05:43 BUN/Creatinine Ratio 13 % 03/24/22 05:43 Glucose 92 mg/dL (65-100) 03/24/22 05:43 Calcium 9.2 mg/dL (8.4-10.2) 03/24/22 05:43 Magnesium 1.60 mg/dL (1.7-2.3) L 03/23/22 04:30 Total Bilirubin 1.20 mg/dL (0.1-1.2) 03/24/22 05:43 AST 27 units/L (5-40) 03/24/22 05:43 ALT 20 units/L (7-56) 03/24/22 05:43 Alkaline Phosphatase 102 units/L (35-129) 03/24/22 05:43 Total Protein 8.3 g/dL (6.3-8.2) H 03/24/22 05:43 Albumin 3.3 g/dL (3.9-5) L 03/24/22 05:43 Albumin/Globulin Ratio 0.7 % 03/24/22 05:43 Lipase 44 units/L (13-60) 03/23/22 04:30 TSH 3.630 mlU/mL (0.270-4.200) 03/23/22 04:30 Free T4 0.98 ng/dL (0.76-1.46) 03/23/22 04:30 Urine Color Yellow (Yellow) 03/23/22 12:59 Urine Turbidity Clear (Clear) 03/23/22 12:59 Urine pH 6.0 (5.0-7.0) 03/23/22 12:59 Ur Specific [place] 1.013 (1.003-1.030) 03/23/22 12:59 Urine Protein <15 mg/dl mg/dL (Negative) 03/23/22 12:59 Urine Glucose (UA) Neg mg/dL (Negative) 03/23/22 12:59 Urine Ketones Tr mg/dL (Negative) 03/23/22 12:59 Urine Blood Sm (Negative) 03/23/22 12:59 Urine Nitrite Neg (Negative) 03/23/22 12:59 Urine Bilirubin Neg (Negative) 03/23/22 12:59 Urine Urobilinogen < 2 mg/dL (<2.0) 03/23/22 12:59 Ur Leukocyte Esterase Mod (Negative) 03/23/22 12:59 Urine WBC (Auto) 1.0 /HPF (0.0-6.0) 03/23/22 12:59 Urine RBC (Auto) 3.0 /HPF (0.0-6.0) 03/23/22 12:59 U Epithel Cells (Auto) 2.0 /HPF (0-13.0) 03/23/22 12:59 Urine Bacteria (Auto) 1+ /HPF (Negative) 03/23/22 12:59 Urine Mucus Few /HPF 03/23/22 12:59 Morse/IV: Voiding Method External Female Catheter Active Medications - Current Medications Current Medications: Generic Name Dose Route Start Last Admin Trade Name Freq PRN Reason Stop Dose Admin Acetaminophen 650 mg 03/23/22 21:35 Acetaminophen 325 Mg Tab PO Q4H PRN Pain MILD(1-3)/Fever >100.5/BARAJAS Allopurinol 300 mg 03/26/22 10:00 03/26/22 11:21 Allopurinol 300 Mg Tab PO 300 mg QDAY ARELY Administration Ferrous Sulfate 325 mg 03/26/22 10:00 03/26/22 11:22 Ferrous Sulfate 325 Mg Tab PO 325 mg DAILY ARELY Administration Folic Acid 1 mg 03/26/22 10:00 03/26/22 11:22 Folic Acid 1 Mg Tab PO 1 mg QDAY ARELY Administration Heparin Sodium (Porcine) 5,000 unit 03/24/22 22:00 03/26/22 11:22 Heparin 5,000 Unit/1 Ml Vial SUB-Q 5,000 unit Q12HR ARELY Administration Sodium Chloride 1,000 mls @ 75 mls/hr 03/23/22 21:45 03/26/22 06:33 Nacl 0.9% 1000 Ml IV 75 mls/hr DIRECT ARELY Administration Losartan Potassium 25 mg 03/26/22 10:00 03/26/22 11:22 Losartan 25 Mg Tab PO 25 mg QDAY ARELY Administration Magnesium Oxide 400 mg 03/26/22 10:00 03/26/22 11:21 Magnesium Oxide 400 Mg Tab PO 400 mg DAILY ARELY Administration Melatonin 5 mg 03/25/22 16:07 03/25/22 22:45 Melatonin 5 Mg Tab PO 5 mg QHS PRN Administration Sleep Metoclopramide HCl 10 mg 03/23/22 21:35 Metoclopramide 10 Mg/2 Ml Inj IV Q6H PRN Nausea And Vomiting Metoprolol Tartrate 50 mg 03/24/22 19:00 03/26/22 03:34 Metoprolol Tartrate 50 Mg Tab PO 50 mg Q8H ARELY Administration Miscellaneous Medication 10 mg 03/26/22 10:00 Dapagliflozin Propanediol [Farxiga] PO DAILY ARELY Morphine Sulfate 2 mg 03/23/22 14:52 03/23/22 17:22 Morphine 2 Mg/1 Ml Inj IV 2 mg Q4H PRN Administration Pain, Moderate (4-6) Ondansetron HCl 4 mg 03/23/22 21:35 Ondansetron 4 Mg/2 Ml Inj IV Q8H PRN Nausea And Vomiting Oxycodone/Acetaminophen 1 tab 03/23/22 21:35 03/25/22 22:45 Oxycodone /Acetaminophen 5-325mg Tab PO 1 tab Q6H PRN Administration Pain, Moderate (4-6) Sodium Chloride 10 ml 03/23/22 22:00 03/26/22 11:25 Sodium Chloride 0.9% 10 Ml Flush Syringe IV 10 ml BID ARELY Administration Sodium Chloride 10 ml 03/23/22 21:35 Sodium Chloride 0.9% 10 Ml Flush Syringe IV PRN PRN LINE FLUSH Torsemide 20 mg 03/26/22 10:00 03/26/22 11:21 Torsemide 10 Mg Tab PO 20 mg QDAY ARELY Administration
--- NOTE | 2022-03-26 13:03 | Progress Note ---
Assessment and Plan - Patient Problems (1) Atrial fibrillation with RVR Current Visit: Yes Status: Acute Plan to address problem: 66-year-old woman with history of paroxysmal atrial fibrillation, maintained on metoprolol and Xarelto, presents with nausea vomiting and diarrhea over several days, associated with a transient recurrence of rapid atrial fibrillation. We will resume patient's metoprolol, otherwise conservative cardiac management. Replete magnesium levels. With regards to oral anticoagulation, Xarelto can be resumed on discharge. Defer to internal medicine and gastroenterology for evaluation and management of the patient's primary presenting complaints of nausea vomiting and diarrhea. Subjective Date of service: 03/26/22 Principal diagnosis: Nausea, vomiting, diarrhea. Paroxysmal atrial fibrillation Interval history: Patient is comfortable in no acute distress, no new cardiac complaints, no new cardiac events reported. Objective Vital Signs Temp Pulse Resp BP Pulse Ox 03/26/22 11:22 75 151/80 03/26/22 09:01 98.8 F 75 18 151/80 100 03/26/22 04:09 98.1 F 72 18 149/82 99 03/26/22 02:00 63 03/25/22 23:34 98.0 F 75 18 143/90 99 03/25/22 23:00 18 97 03/25/22 20:59 98.1 F 72 18 160/92 100 03/25/22 18:00 84 03/25/22 14:45 98.4 F 74 18 160/90 99 - Physical Examination General: No Apparent Distress HEENT: Positive: PERRL Neck: Positive: neck supple Cardiac: Positive: Reg Rate and Rhythm Lungs: Positive: Decreased Breath Sounds Neuro: Positive: Grossly Intact Abdomen: Positive: Soft Skin: Positive: Clear Extremities: Absent: edema - Imaging and Cardiology EKG: report reviewed (Paroxysmal atrial fibrillation. Heart rate of 100-1 20)
[2022-03-26] MEDS: oxyCODONE /ACETAMINOPHEN 5-325MG TAB PO PRN ×2 (14:42→22:25)
[2022-03-26] MEDS: MELATONIN 5 MG TAB PO PRN (22:25)
[2022-03-27] MEDS: METOPROLOL TARTRATE 50 MG TAB PO SCH (03:25)
--- NOTE | 2022-03-27 09:03 | Discharge Summary ---
Providers - Providers Date of Admission: 03/23/22 14:52 Date of discharge: 03/27/22 Attending physician: ERIKA ROBERTS 03/23/22 21:35 Consult to Physician [CONS] Routine Comment: Consulting Provider: SHANTELL HOSKINS Physician Instructions: Reason For Exam: afib with rvr Primary care physician: BASHIR MAN Hospitalization Reason for admission: Abd pain Condition: Fair Hospital course: 66-year-old female comes in for multiple complaints including abdominal pain and vomiting. Patient also had intermittent palpitations. In the emergency room patient had A. fib with rapid RVR paroxysmally hence patient was admitted. Patient was noted to have significant GI symptoms prior to admission with diar taylor, nausea and vomiting. Patient was admitted with diagnosis of paroxysmal atrial fibrillation, acute gastritis, moderately controlled hypertension. Patient's abdominal symptoms resolved with PPIs. Cardiology evaluated the patient in consultation for the atrial fibrillation with RVR. Patient was initiated on diltiazem 120 mg every 24 hours and recommendations for Eliquis at the time of discharge. Patient was initially started on heparin but now transition to Eliquis at discharge. Case management was consulted for home health services which has been arranged at discharge. Dedicated discharge time 32 minutes Disposition: 01 HOME / SELF CARE / HOMELESS Final Discharge Diagnosis (Prints w/discharge instructions): Paroxysmal atrial fibrillation with RVR, acute gastritis, hypertension Core Measure Documentation - Palliative Care Palliative Care/ Comfort Measures: Not Applicable - Core Measures Any of the following diagnoses?: none Exam - Constitutional Vitals: Temp Pulse Resp BP Pulse Ox 98.5 F 79 18 126/66 100 03/27/22 07:47 03/27/22 07:47 03/27/22 03:46 03/27/22 07:47 03/27/22 07:47 General appearance: Present: no acute distress, well-nourished - EENT Eyes: Present: PERRL ENT: hearing intact, clear oral mucosa - Neck Neck: Present: supple, normal ROM - Respiratory Respiratory effort: normal Respiratory: bilateral: CTA - Cardiovascular Heart Sounds: Present: S1 & S2. Absent: rub, click - Extremities Extremities: pulses symmetrical, No edema Peripheral Pulses: within normal limits - Abdominal General gastrointestinal: Present: soft, non-tender, non-distended, normal bowel sounds Female genitourinary: Present: normal - Integumentary Integumentary: Present: clear, warm, dry - Musculoskeletal Musculoskeletal: gait normal, strength equal bilaterally - Psychiatric Psychiatric: appropriate mood/affect, intact judgment & insight - Neurologic Neurologic: CNII-XII intact, moves all extremities Plan Activity: advance as tolerated Weight Bearing Status: Weight Bear as Tolerated Diet: regular Follow up with: BASHIR MAN MD [Primary Care Provider] - 3-5 Days Prescriptions: Losartan [Cozaar] 25 mg PO QDAY #30 tab-cap Metoprolol [Lopressor TAB] 50 mg PO Q8H #90 tablet
[2022-03-27] MEDS: HEPARIN 5,000 UNIT/1 ML VIAL SUB-Q SCH (10:27)
[2022-03-27] MEDS: FERROUS SULFATE 325 MG TAB PO SCH (10:27)
[2022-03-27] MEDS: FOLIC ACID 1 MG TAB PO SCH (10:27)
[2022-03-27] MEDS: LOSARTAN 25 MG TAB PO SCH (10:28)
[2022-03-27] MEDS: TORSEMIDE 10 MG TAB PO SCH (10:28)
[2022-03-27] MEDS: MAGNESIUM OXIDE 400 MG TAB PO SCH (10:28)
[2022-03-27] MEDS: allopurinoL 300 MG TAB PO SCH (10:28)
--- NOTE | 2022-03-27 15:06 | Progress Note ---
Assessment and Plan - Patient Problems (1) Atrial fibrillation with RVR Status: Acute Plan to address problem: 66-year-old woman with history of paroxysmal atrial fibrillation, maintained on metoprolol and Xarelto, presents with nausea vomiting and diarrhea over several days, associated with a transient recurrence of rapid atrial fibrillation. We will resume patient's metoprolol, otherwise conservative cardiac management. Replete magnesium levels. With regards to oral anticoagulation, Xarelto can be resumed on discharge. Defer to internal medicine and gastroenterology for evaluation and management of the patient's primary presenting complaints of nausea vomiting and diarrhea. Subjective Date of service: 03/27/22 Principal diagnosis: Nausea, vomiting, diarrhea. Paroxysmal atrial fibrillation Interval history: Patient is comfortable in no acute distress, no new cardiac complaints, no new cardiac events reported. Objective Vital Signs Temp Pulse Resp BP BP Pulse Ox 03/27/22 11:45 97.5 F L 72 146/78 99 03/27/22 10:28 79 126/66 03/27/22 07:47 98.5 F 79 126/66 100 03/27/22 03:46 97.6 F 66 18 135/75 100 03/27/22 02:00 70 03/26/22 23:00 18 97 03/26/22 20:00 97.7 F 74 18 153/87 100 03/26/22 16:14 98.7 F 84 18 145/73 99 - Physical Examination General: No Apparent Distress HEENT: Positive: PERRL Neck: Positive: neck supple Cardiac: Positive: Reg Rate and Rhythm Lungs: Positive: Decreased Breath Sounds Neuro: Positive: Grossly Intact Abdomen: Positive: Soft Skin: Positive: Clear Extremities: Absent: edema - Imaging and Cardiology EKG: report reviewed (Paroxysmal atrial fibrillation. Heart rate of 100-1 20)
[2022-03-27 16:34] VITALS: BP 138/75
== END 2022-03-27 16:51 | disposition home or self-care (01) | DRG 392 ==
LOC: ED 03:02 → 4A 14:52
PROVIDERS: ADMIT Internal Medicine; ATTEND Hospitalist
DX: K29.00 Acute gastritis without bleeding (principal); I48.0 Paroxysmal atrial fibrillation; I11.0 Hypertensive heart disease with heart failure; I50.9 Heart failure, unspecified; Z91.012 Allergy to eggs
CPT/HCPCS: 36415; 74177; 80053; 81001; 83690; 83735; 84439; 84443; 85025; 93005; 96374; 96375; 96376; 99285; G0378; J3490; J1200; J1644; J2270; J2405; J2765; J3010; J3475; J7030; J7040; Q0163; Q9967